=== PATIENT | female | born 1970 | race Caucasian/White ===

== ENCOUNTER 2018-10-23 14:49 | Emergency (ER) | payer SELFPAY ==
[2018-10-23] MEDS: ACETAMINOPHEN 500 MG TAB PO (16:34)
== END 2018-10-23 16:56 | disposition home or self-care (01) ==
LOC: FTE 14:49
DX: F41.9 Anxiety disorder, unspecified (principal); R06.02 Shortness of breath
CPT/HCPCS: 93005; 99283-25